=== PATIENT | female | born 1940 | race Caucasian/White ===

== ENCOUNTER → 2017-02-12 | Outpatient (CLI) | payer MEDICARE, OTHER ==
[~2017-02-12] MED LIST: DIPHENHYDRAMINE HCL 25 MG CAPSULE ONE
--- NOTE | 2017-02-12 16:31 | RADIOLOGY REPORT (SQ) ---
EXAM DESCRIPTION: MRI HEAD COMBO COMPLETED DATE/TIME: 02/12/2017 4:09 pm REASON FOR STUDY: SENSORINEURAL HEARING LOSS, UNILATERAL, RIGHT EAR WITH UNRESTRICTED HEARING H90.41 SNSRNRL HEAR LOSS, UNI, RIGHT EAR, W UNRESTR HEAR CNT COMPARISON: None. TECHNIQUE: Multiplanar imaging includes noncontrasted T1, T2, FLAIR, diffusion with ADC map and post gadolinium contrast T1 sequences. Images stored on PACS. Thin section axial T2 images, thin section axial pre and postcontrast T1 weighted images, postcontras t coronal T1 weighted images through the internal auditory canals and inner ear structures. CONTRAST TYPE AND DOSE: 15 mL Multihance. About 15 minutes after injection, the patient developed right preseptal orbital soft tissue swelling with puffiness of her right upper and lower eyelids. This resolved with 50 mg of p.o. Benadryl RENAL FUNCTION: GFR > 60. LIMITATIONS: None. FINDINGS: ANATOMY: No developmental anomalies. Normal vascular flow voids. Pituitary fossa normal. CSF SPACES: Normal in size and contour. No hemorrhage. CEREBRUM: Sulci and gyri normal in size and contour. Moderate spotty chronic small vessel ischemic c hange in the bifrontal and biparietal white matter and mid genet, with small chronic lacunar infarcts in the left thalamus and bilateral basal ganglia. No evidence of hemorrhage, mass, or extraaxial flu id collection. No abnormal enhancement post contrast. No MR evidence of acute infarct. POSTERIOR FOSSA: Moderate chronic pontine small vessel ischemic change. No hemorrhage. No edema, mass es, or mass effect. Internal auditory canals, cerebellopontine angles, mastoids normal. No enhancing lesions. DIFFUSION IMAGING: Negative for acute or subacute infarction. ORBITS: No masses. Globes normal. PARANASAL SINUSES: No fluid levels. Mucosa normal. OTHER: No other significant finding. IMPRESSION: No masses or enhancement along the internal auditory canals or inner ear structures. Moderate small vessel ischemic change, chronic Facial swelling after injection with MultiHance, resolved with 50 mg of p.o. Benadryl. EVIDENCE OF ACUTE STROKE: NO. TECHNICAL DOCUMENTATION: JOB ID: [id number] [employer]- All Rights Reserved
== END ==
LOC: RAD 14:30
PROVIDERS: ATTEND Otolaryngology
DX: H90.41 Sensorineural hearing loss, unilateral, right ear, with unrestricted hearing on the contralateral side (principal)
CPT/HCPCS: 82565; 70553; A9577; A9270

== ENCOUNTER 2017-04-21 10:55 | Day surgery (SDC) | payer MEDICARE, OTHER ==
[~2017-04-21 10:55] MED LIST changes: +BUPIVACAINE HCL 0.75% INJ/PF (7.5 MG/1 ML) 10 ML SDV OD PRN; -DIPHENHYDRAMINE HCL 25 MG CAPSULE ONE; +KETOROLAC TROMETHAMINE 0.45% 4 DROP/0.4 ML DROPERETTE OD PRN; +LIDOCAINE 4% INJ/PF (40 MG/ML) 5 ML AMPUL OD PRN
[2017-04-21] MEDS ORDERED: CHONDR SU A NA/HYALUR INTRAOC KIT (SURGICARE) ONE (11:01)
[2017-04-21] MEDS ORDERED: PHENYLEPHRINE/KETOROLAC 1%-0.3% 4 ML VIAL ONE (11:01)
[2017-04-21] MEDS ORDERED: LIDOCAINE 4% INJ/PF (40 MG/ML) 5 ML AMPUL ONE (11:13)
[2017-04-21] MEDS ORDERED: BUPIVACAINE HCL 0.75% INJ/PF (7.5 MG/1 ML) 10 ML SDV ONE (11:13)
[2017-04-21] MEDS: TROPICAMIDE 1% OPH SOLN 3 ML OD PRN ×3 (11:30→11:50)
[2017-04-21] MEDS: BESIFLOXACIN HCL 0.6% OPH SUSP 5 ML BOTTLE OD PRN ×4 (11:30→12:38)
[2017-04-21] MEDS: CYCLOPENTOLATE 0.2%/PHENYLEPHRINE 1% OPH SOLN 2 ML OD PRN ×3 (11:30→11:50)
[2017-04-21] MEDS: TETRACAINE HCL 0.5% OPH SOLN 0.6 ML DROPERETTE OD PRN ×2 (11:31→11:50)
[2017-04-21] MEDS ORDERED: MIDAZOLAM 2 MG/2 ML INJ ONE ×2 (11:40)
--- NOTE | 2017-04-21 18:23 | DISCHARGE SUMMARY E ---
Discharge Summary NAME: IVIS CAVANAUGH : 1940 AGE: 77Y ADMITTED: 04/21/2017 DISCHARGED: 04/21/2017 HOSPITAL COURSE: The patient is a 77-year-old lady who underwent uneventful cataract extraction with torque intraocular lens implant right eye on 04/21/2017. She will be discharged to home. She is instructed to resume preoperative medications, take Tylenol as needed for discomfort, to keep her eye shielded, to use Besivance, Durezol, and Ilevro at 3:00 p.m. and 8:00 p.m., to follow up in my office in 1 day. DICTATING PHYSICIAN: STEVEN GONZALES M.D. [id number] PHY#: [id number] ID: [id number] JOB#: [id number] ACCT: [id number] cc:STEVEN GONZALES M.D. >
--- NOTE | 2017-04-21 18:23 | [facility] OPERATIVE REPORT E ---
[facility] Operative Report NAME: IVIS CAVANAUGH AGE: 77Y DATE OF SURGERY: 04/21/2017 ROOM: PREOPERATIVE DIAGNOSIS: Cataract, right eye. POSTOPERATIVE DIAGNOSIS: Cataract, right eye. OPERATION: Phacoemulsification with toric intraocular lens implant, right eye. SURGEON: STEVEN GONZALES M.D. ANESTHESIA: Topical with MAC. INDICATIONS FOR SURGERY: Difficulty reading words on TV and driving at night. Best corrected visual acuity 20/70. PROCEDURE: The patient was brought to the Operating Room and placed on the operative table. Following tetracaine drops, topical anesthesia was administered. This consisted of instrument wipe pledgets soaked in a solution of 4% Xylocaine mixed with 0.75% Marcaine in a 1:2 ratio. A 2 x 1 cm pledget was placed in the superior fornix. A 1 x 1 cm pledget was placed in the inferior fornix. The eye was patched shut for 5 minutes. The patch was removed. The eye was sterilely prepped and draped in the usual manner. Lid speculum was placed in the eye. The pledgets were removed. 4-0 black silk sutures were placed around the superior and the inferior rectus muscles to be used as traction. A conjunctival peritomy was made at the 10 o'clock position. Hemostasis was obtained with bipolar cautery. A posterior limbal groove was created using a crescent knife and dissected anteriorly towards the cornea. A sharp point blade was used to create a paracentesis site at the 2 o'clock position. A 2.4 mm keratome was used to enter the anterior chamber through the groove. Viscoelastic was injected into the anterior chamber. An anterior capsulotomy was performed using Utrata forceps in a capsulorrhexis fashion. Hydrodissection and hydrodelineation were performed. Phacoemulsification was performed in eogffq-ven-agfgbuf technique. A total of 41 seconds phaco time was used. Following this, the I/A unit was used to remove residual cortex. Viscoelastic was injected into the capsular bag. Intraocular lens model [id number], 24.0 diopters, serial number [id number] was placed in the capsular bag. The I/A unit was used to remove residual viscoelastic. The wound was seen to be watertight under high and low pressure, and no sutures were placed. The intraocular lens was well centered. The pressure was adjusted in the eye to normal pressure. The 4-0 black silk sutures and lid speculum were removed. The eye was shielded after Besivance drops were placed. The patient tolerated the procedure well and was sent to the Recovery Room in good condition. ADDENDUM: Prior to surgery, the patient was placed in a seated position, and the 0, 180, and 270 degree axis of the eye was marked using a marking level. Prior to placing the lens implant, the 170-degree axis was marked on the eye. The lens was centered at this position. DICTATING PHYSICIAN: STEVEN GONZALES M.D. DICTATING PHYSICIAN: STEVEN GONZALES M.D. [id number] PHY#: [id number] ID: [id number] JOB#: [id number] ACCT: [id number] cc:STEVEN GONZALES M.D. > MTDD
== END 2017-04-21 11:19 | disposition home or self-care (01) ==
LOC: SC 10:55
PROVIDERS: ATTEND Ophthalmology
PROC: 08RJ3JZ Replacement of Right Lens with Synthetic Substitute, Percutaneous Approach (ICD-10-PCS; principal; 2017-04-21 12:30)
DX: H25.811 Combined forms of age-related cataract, right eye (principal); H35.3122 Nonexudative age-related macular degeneration, left eye, intermediate dry stage; H35.3212 Exudative age-related macular degeneration, right eye, with inactive choroidal neovascularization; H35.372 Puckering of macula, left eye; H04.123 Dry eye syndrome of bilateral lacrimal glands; H40.013 Open angle with borderline findings, low risk, bilateral; I10 Essential (primary) hypertension; J44.9 Chronic obstructive pulmonary disease, unspecified; E05.90 Thyrotoxicosis, unspecified without thyrotoxic crisis or storm; Z87.891 Personal history of nicotine dependence; Z88.0 Allergy status to penicillin; Z79.899 Other long term (current) drug therapy
CPT/HCPCS: 66984; V2787; J2250; J3490 ×3; A9270; C9447; 142

== ENCOUNTER 2017-05-12 09:35 | Day surgery (SDC) | payer MEDICARE, OTHER ==
[~2017-05-12 09:35] MED LIST changes: -BUPIVACAINE HCL 0.75% INJ/PF (7.5 MG/1 ML) 10 ML SDV OD PRN; -KETOROLAC TROMETHAMINE 0.45% 4 DROP/0.4 ML DROPERETTE OD PRN; +KETOROLAC TROMETHAMINE 0.45% 4 DROP/0.4 ML DROPERETTE OS PRN; -LIDOCAINE 4% INJ/PF (40 MG/ML) 5 ML AMPUL OD PRN
[2017-05-12] MEDS: TETRACAINE HCL 0.5% OPH SOLN 0.6 ML DROPERETTE OS PRN ×2 (10:10→10:38)
[2017-05-12] MEDS: CYCLOPENTOLATE 0.2%/PHENYLEPHRINE 1% OPH SOLN 2 ML OS PRN ×3 (10:11→10:36)
[2017-05-12] MEDS: TROPICAMIDE 1% OPH SOLN 3 ML OS PRN ×3 (10:11→10:36)
[2017-05-12] MEDS: BESIFLOXACIN HCL 0.6% OPH SUSP 5 ML BOTTLE OS PRN ×4 (10:12→11:22)
[2017-05-12] MEDS ORDERED: MIDAZOLAM 2 MG/2 ML INJ ONE (10:18)
[2017-05-12] MEDS ORDERED: ONDANSETRON HCL INJ/PF 4 MG/2 ML SDV ONE (10:19)
[2017-05-12] MEDS ORDERED: FENTANYL CITRATE INJ/PF 100 MCG/2 ML AMPUL ONE (10:19)
[2017-05-12] MEDS: LIDOCAINE 4% INJ/PF (40 MG/ML) 5 ML AMPUL OS PRN ×2 (11:00)
[2017-05-12] MEDS: BUPIVACAINE HCL 0.75% INJ/PF (7.5 MG/1 ML) 10 ML SDV OS PRN ×2 (11:00)
[2017-05-12] MEDS: CHONDR SU A NA/HYALUR INTRAOC KIT (SURGICARE) ONE ×2 (11:08)
[2017-05-12] MEDS: PHENYLEPHRINE/KETOROLAC 1%-0.3% 4 ML VIAL ONE ×2 (11:08)
--- NOTE | 2017-05-12 11:37 | [facility] DISCHARGE SUMMARY E ---
[facility] Discharge Summary NAME: IVIS CAVANAUGH AGE: 77Y ADMITTED: 05/12/2017 DISCHARGED: 05/12/2017 HOSPITAL COURSE: The patient is a 77-year-old lady who underwent uneventful cataract extraction with toric intraocular lens implant left eye on 05/12/2017. She will be discharged to home. She is instructed to resume preoperative medications, take Tylenol as needed for discomfort, to keep her eye shielded, to use Besivance, Durezol, and Ilevro at 3 p.m. and 8 p.m., and to follow up in my office in 1 day. DICTATING PHYSICIAN: STEVEN GONZALES M.D. [id number] PHY#: [id number] ID: [id number] JOB#: [id number] ACCT: [id number] cc:STEVEN GONZALES M.D. > MTDD
--- NOTE | 2017-05-12 11:37 | [facility] OPERATIVE REPORT E ---
[facility] Operative Report NAME: IVIS CAVANAUGH AGE: 77Y DATE OF SURGERY: 05/12/2017 ROOM: PREOPERATIVE DIAGNOSES: 1. Cataract, left eye. 2. astigmatism, left eye. POSTOPERATIVE DIAGNOSES: 1. Cataract, left eye. 2. astigmatism, left eye. PROCEDURE PERFORMED: Phacoemulsification with Toric intraocular lens implant, left eye. SURGEON: STEVEN GONZALES M.D. ANESTHESIA: Topical with MAC. INDICATIONS FOR SURGERY: Difficulty with glare and reading captions on TV. Best corrected visual acuity 20/50. PROCEDURE: The patient was brought to the Operating Room and placed on the operative table.Prior to the surgery, the patient was placed in the seated position and the 0, 270, and 180 degree axis was marked on the eye using a marking level. Following tetracaine drops, topical anesthesia was administered. This consisted of instrument wipe pledgets soaked in a solution of 4% Xylocaine mixed with 0.75% Marcaine in a 1:2 ratio. A 2 x 1 cm pledget was placed in the superior fornix. A 1 x 1 cm pledget was placed in the inferior fornix. The eye was patched shut for 5 minutes. The patch was removed. The eye was sterilely prepped and draped in the usual manner. Lid speculum was placed in the eye. The pledgets were removed. 4-0 black silk sutures were placed around the superior and the inferior rectus muscles to be used as traction. A conjunctival peritomy was made at the 10 o'clock position. Hemostasis was obtained with bipolar cautery. A posterior limbal groove was created using a crescent knife and dissected anteriorly towards the cornea. A sharp point blade was used to create a paracentesis site at the 2 o'clock position. A 2.4 mm keratome was used to enter the anterior chamber through the groove. Viscoelastic was injected into the anterior chamber. An anterior capsulotomy was performed using Utrata forceps in a capsulorrhexis fashion. Hydrodissection and hydrodelineation were performed. Phacoemulsification was performed in rpcuee-xpi-yhyxvle technique. A total of 5.51 CDE phaco time was used. Following this, the I/A unit was used to remove residual cortex. Viscoelastic was injected into the capsular bag. the 5 degree axis was marked on the eye using the previously marked sites as reference.Intraocular lens model SN6AT4, 24.0 diopters, serial number [id number] was placed in the capsular bag. The lens was centered at the 5 degree axis The I/A unit was used to remove residual viscoelastic. The wound was seen to be watertight under high and low pressure, and no sutures were placed. The intraocular lens was well centered. The pressure was adjusted in the eye to normal pressure. The 4-0 black silk sutures and lid speculum were removed. The eye was shielded after Besivance drops were placed. The patient tolerated the procedure well and was sent to the Recovery Room in good condition. DICTATING PHYSICIAN: STEVEN GONZALES M.D. [id number] PHY#: [id number] ID: [id number] JOB#: [id number] ACCT: [id number] cc:STEVEN GONZALES M.D. > MTDD
== END 2017-05-12 12:04 | disposition home or self-care (01) ==
LOC: SC 09:35
PROVIDERS: ATTEND Ophthalmology
PROC: 08RK3JZ Replacement of Left Lens with Synthetic Substitute, Percutaneous Approach (ICD-10-PCS; principal; 2017-05-12 11:00)
DX: H25.812 Combined forms of age-related cataract, left eye (principal); H52.202 Unspecified astigmatism, left eye; Z96.1 Presence of intraocular lens; J44.9 Chronic obstructive pulmonary disease, unspecified; I10 Essential (primary) hypertension; E07.9 Disorder of thyroid, unspecified; Z79.899 Other long term (current) drug therapy; Z88.0 Allergy status to penicillin
CPT/HCPCS: 66984; V2787; J2250; J3490 ×3; A9270; J3010; J2405; C9447; 142

== ENCOUNTER 2018-07-03 11:15 | Emergency (ER) | payer MEDICARE, OTHER ==
[2018-07-03 11:25] VITALS: BP 168/79
--- NOTE | 2018-07-03 11:49 | ER Document Report ---
ED General - General Chief Complaint: Cold Symptoms Stated Complaint: COUGH Time Seen by Provider: 07/03/18 11:26 Notes: Patient is a 1-year-old female with history of COPD, not on oxygen that presents to the emergency department for chief complaint of runny nose, cough and sneezing. The patient states that both her and her have had similar symptoms over the past 3 days, has had decreased appetite as a result, and postnasal drip. She is on Spiriva for her COPD, she states that she does not think it helps. She has not noticed any significant wheezing. She denies any fevers, chills, night sweats, difficulty breathing or shortness of breath associated or any chest pain. She states they have done construction on their house recently, there is a lot of dust, and thinks that that may have triggered her symptoms. Past Medical History: COPD, hypothyroidism Past Surgical History: Hysterectomy Social History: Former smoker, quit many years ago, denies alcohol or drug use. Family History: Reviewed and noncontributory for presenting illness Allergies: Reviewed, see documented allergy list. REVIEW OF SYSTEMS: Other than noted above, the 12 point review of systems was reviewed with the patient and were negative, all pertinent findings are included in the HPI. PHYSICAL EXAMINATION: Vital signs reviewed, nursing noted reviewed. GENERAL: Elderly female, well-appearing, well-nourished and in no acute distress. HEAD: Atraumatic, normocephalic. EYES: Eyes appear normal, extraocular movements intact, sclera anicteric, conjunctiva are normal. ENT: Mild bilateral nasal turbinate injection, nares patent, oropharynx clear without exudates. Moist mucous membranes. NECK: Normal range of motion, supple without lymphadenopathy LUNGS: Breath sounds clear to auscultation bilaterally and equal. No wheezes rales or rhonchi. HEART: Regular rate and rhythm without murmurs ABDOMEN: Soft, nontender, normoactive bowel sounds. No rebound, guarding, or rigidity. No masses appreciated. EXTREMITIES: Nontender, good range of motion, no pitting or edema. NEUROLOGICAL: No focal neurological deficits. Moves all extremities spontaneously Motor and sensory grossly intact on exam. PSYCH: Normal mood, normal affect. SKIN: Warm, Dry, normal turgor, no rashes or lesions noted on exposed skin TRAVEL OUTSIDE OF THE [place] IN LAST 30 DAYS: No - Related Data Allergies/Adverse Reactions: lidocaine Allergy (Intermediate, Verified 04/21/17 11:29) ELEVATED BP Penicillins Allergy (Intermediate, Verified 04/21/17 11:29) RASH Past Medical History - Social History Smoking Status: Former Smoker Family History: Reviewed & Not Pertinent Patient has suicidal ideation: No Patient has homicidal ideation: No - Past Medical History Cardiac Medical History: Reports: Hx Hypercholesterolemia, Hx Hypertension - on meds Denies: Hx Coronary Artery Disease, Hx Heart Attack Pulmonary Medical History: Reports: Hx COPD Denies: Hx Asthma, Hx Bronchitis, Hx Pneumonia Neurological Medical History: Denies: Hx Cerebrovascular Accident, Hx Seizures Endocrine Medical History: Reports: Hx Hypothyroidism Renal/ Medical History: Denies: Hx Peritoneal Dialysis GI Medical History: Reports: Hx Ulcer - 30 YRS AGO . Denies: Hx Hepatitis, Hx Hiatal Hernia Musculoskeletal Medical History: Reports Hx Arthritis - generalized Psychiatric Medical History: Reports: Hx Depression Infectious Medical History: Denies: Hx Hepatitis Past Surgical History: Reports: Hx Abdominal Surgery - hernias, Hx Cholecystectomy, Hx Hysterectomy. Denies: Hx Mastectomy, Hx Open Heart Surgery, Hx Pacemaker - Immunizations Hx Diphtheria, Pertussis, Tetanus Vaccination: Yes Physical Exam - Vital signs Vitals: Temp Pulse Resp BP Pulse Ox 97.6 F 63 22 H 168/79 H 96 07/03/18 11:24 07/03/18 11:24 07/03/18 11:24 07/03/18 11:24 07/03/18 11:24 Course - Re-evaluation Re-evalutation: Patient seen and examined vital signs reviewed. Patient was evaluated and treated as appropriate for the patient's presenting symptoms and complaint, with consideration of any critical or life threatening conditions that may be associated with their obtained history and exam as noted above. The patient was re-evaluated and was stable, no increased work of breathing, chest x-ray reviewed and negative Evaluation was most consistent with URI, will discharge home with a prescription for Flonase and follow-up with PCP, patient was agreeable Plan of care was discussed with the patient at this point, after careful consideration I feel that that patient can be discharged from the emergency department, the patient was educated treatments and reasons to return to the emergency department based on their presumed diagnosis as noted above, they were advised to followup with a primary care physician in 2-3 days. Patient was agreeable to plan of care. *Note is created using voice recognition software and may contain spelling, syntax or grammatical errors. Chest X-Ray 07/03/18 11:49 IMPRESSION: COPD. NO ACUTE RADIOGRAPHIC FINDING IN THE CHEST. - Vital Signs Vital signs: Temp Pulse Resp BP Pulse Ox 97.6 F 63 22 H 168/79 H 96 07/03/18 11:24 07/03/18 11:24 07/03/18 11:24 07/03/18 11:24 07/03/18 11:24 Discharge - Discharge Clinical Impression: URI (upper respiratory infection) Qualifiers: URI type: unspecified URI Qualified Code(s): J06.9 - Acute upper respiratory infection, unspecified Condition: Stable Disposition: HOME, SELF-CARE Instructions: Upper Respiratory Illness ([facility]) Additional Instructions: Please use the Flonase as directed, at this time I do not think you need any antibiotics, your chest x-ray is negative for any sign of pneumonia, continue your Spiriva as directed, and please follow-up with your primary care physician. Prescriptions: Fluticasone Propionate [Flonase Nasal [place] 50 Mcg/[place] 16 gm] 1 spray NASL Q12 #1 inhaler Referrals: MARY KAY CORONA MD [Primary Care Provider] - Follow up as needed
--- NOTE | 2018-07-03 12:41 | RADIOLOGY REPORT (SQ) ---
EXAM DESCRIPTION: CHEST 2 VIEWS COMPLETED DATE/TIME: 07/03/2018 12:23 pm REASON FOR STUDY: cough COMPARISON: None. NUMBER OF VIEWS: Two view. TECHNIQUE: Frontal and lateral radiographic views of the chest acquired. LIMITATIONS: None. FINDINGS: LUNGS AND PLEURA: No opacities, masses or pneumothorax. No pleural effusion. Attenuated bl ood vessels and flattened roderick-diaphragms. MEDIASTINUM AND HILAR STRUCTURES: No masses. No contour abnormalities. HEART AND VASCULAR STRUCTURES: Heart normal in size and contour. No evidence for failure. BONES: No acute findings. HARDWARE: None in the chest. OTHER: No other significant finding. IMPRESSION: COPD. NO ACUTE RADIOGRAPHIC FINDING IN THE CHEST. TECHNICAL DOCUMENTATION: JOB ID: [id number] [employer]- All Rights Reserved Reading location - IP/workstation name: [email or web address]
== END 2018-07-03 13:43 | disposition home or self-care (01) ==
LOC: ER 11:15
DX: J06.9 Acute upper respiratory infection, unspecified (principal); R05 Cough; R06.7 Sneezing; R09.89 Other specified symptoms and signs involving the circulatory and respiratory systems; J44.9 Chronic obstructive pulmonary disease, unspecified; Z87.891 Personal history of nicotine dependence; Z79.899 Other long term (current) drug therapy
CPT/HCPCS: 71046; 99283

== ENCOUNTER 2018-08-17 10:27 | Emergency (ER) | payer MEDICARE, OTHER ==
--- NOTE | 2018-08-17 10:43 | ER Document Report ---
ED Medical Screen (RME) - General Chief Complaint: Flank Pain Stated Complaint: UTI SYMPTOMS Time Seen by Provider: 08/17/18 10:34 Primary Care Provider: MARY KAY CORONA MD [Primary Care Provider] - Follow up as needed Notes: 78 years old female presents today with right flank pain for the last 2 days. After being completed Macrobid for 8 days for UTI. Pain is sharp moderate to severe in intensity. No fever chills or other constitutional symptoms. No hematuria dysuria frequency urgency. Right flank tenderness noted TRAVEL OUTSIDE OF THE [place] IN LAST 30 DAYS: No - Related Data Allergies/Adverse Reactions: lidocaine Allergy (Intermediate, Verified 08/17/18 10:28) ELEVATED BP Penicillins Allergy (Intermediate, Verified 08/17/18 10:28) RASH Past Medical History - Social History Chew tobacco use (# tins/day): No Drug Abuse: None - Past Medical History Cardiac Medical History: Reports: Hx Hypercholesterolemia, Hx Hypertension - on meds Denies: Hx Coronary Artery Disease, Hx Heart Attack Pulmonary Medical History: Reports: Hx COPD Denies: Hx Asthma, Hx Bronchitis, Hx Pneumonia Neurological Medical History: Denies: Hx Cerebrovascular Accident, Hx Seizures Endocrine Medical History: Reports: Hx Hypothyroidism Renal/ Medical History: Denies: Hx Peritoneal Dialysis GI Medical History: Reports: Hx Ulcer - 30 YRS AGO . Denies: Hx Hepatitis, Hx Hiatal Hernia Musculoskeltal Medical History: Reports Hx Arthritis - generalized Psychiatric Medical History: Reports: Hx Depression Infectious Medical History: Denies: Hx Hepatitis Past Surgical History: Reports: Hx Abdominal Surgery - hernias, Hx Cholecystectomy, Hx Hysterectomy. Denies: Hx Mastectomy, Hx Open Heart Surgery, Hx Pacemaker - Immunizations Hx Diphtheria, Pertussis, Tetanus Vaccination: Yes Physical Exam - Vital signs Vitals: Temp Pulse Resp BP Pulse Ox 97.7 F 68 16 155/62 H 93 08/17/18 10:32 08/17/18 10:32 08/17/18 10:32 08/17/18 10:32 08/17/18 10:32 Course - Vital Signs Vital signs: Temp Pulse Resp BP Pulse Ox 97.7 F 68 16 155/62 H 93 08/17/18 10:32 08/17/18 10:32 08/17/18 10:32 08/17/18 10:32 08/17/18 10:32 Doctor's Discharge - Discharge Referrals: MARY KAY CORONA MD [Primary Care Provider] - Follow up as needed
--- NOTE | 2018-08-17 11:28 | RADIOLOGY REPORT (SQ) ---
EXAM DESCRIPTION: CT LTD RENAL STONE PROTOCOL ON COMPLETED DATE/TIME: 08/17/2018 11:15 am REASON FOR STUDY: flank pain COMPARISON: CT abdomen pelvis 08/08/2013 TECHNIQUE: CT scan of the abdomen and pelvis performed without intravenous or oral contrast. Images reviewed with lung, soft tissue, and bone windows. Reconstructed coronal and sagittal MPR images revi ewed. All images stored on PACS. All CT scanners at this facility use dose modulation, iterative reconstruction, and/or weight based d osing when appropriate to reduce radiation dose to as low as reasonably achievable (ALARA). [facility]: Dose Right [facility]: CareDose [facility]: Dose Right [facility]: Teradose 4D [facility]: Smart Travel [employer] RADIATION DOSE: CT Rad equipment meets quality standard of care and radiation dose reduction techniq ues were employed. CTDIvol: 14.7 mGy. DLP: 747 mGy-cm.mGy. LIMITATIONS: None. FINDINGS: LOWER CHEST: Increased interstitial markings in the periphery of both lung. Small hiatal hernia. NON-CONTRASTED LIVER, SPLEEN, ADRENALS: Evaluation limited by lack of IV contrast. No identified sign ificant masses. Multiple benign hepatic cysts, the largest is 2 cm in the left lobe liver. PANCREAS: No masses. No peripancreatic inflammatory changes. GALLBLADDER: Surgically absent RIGHT KIDNEY AND URETER: No suspicious masses. Assessment limited by lack of IV contrast. Subcentime ter right upper and right lower pole renal cortical cyst. Tiny less than 2 mm calcifications right m id and lower pole kidney, intrarenal nonobstructive stones. No right ureteral calculi. No hydronep hrosis or hydroureter. LEFT KIDNEY AND URETER: No suspicious masses. Assessment limited by lack of IV contrast. No signifi cant calcifications. No hydronephrosis or hydroureter. AORTA AND RETROPERITONEUM: No aneurysm. No retroperitoneal masses or adenopathy. BOWEL AND PERITONEAL CAVITY: No obvious masses or inflammatory changes. No free fluid. APPENDIX: Normal. 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 This is adjacent to the right ureteral orifice into the bladder on axial image 73, and coronal image 48. Post hysterectomy. No pelvic adenopathy or masses. Intact ventral herni a repair BONES: No significant findings. OTHER: No other significant finding. 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 Post cholecystectomy, hysterectomy, and ventral hernia repair, intact. COMMENT: Quality ID # [id number]: Final reports with documentation of one or more dose reduction techniques (e.g., Automated exposure control, adjustment of the mA and/or kV according to patient size, use of iterative reconstruction technique) TECHNICAL DOCUMENTATION: JOB ID: [id number] [employer]- All Rights Reserved Reading location - IP/workstation name: [email or web address]
[2018-08-17 11:36] LABS: ABSOLUTE EOSINOPHILS # (AUTO) 0.2 10^3/uL (0.0-0.6); ABSOLUTE LYMPHOCYTES (AUTO) 1.3 10^3/uL (0.5-4.7); ABSOLUTE MONOCYTES (AUTO) 0.6 10^3/uL (0.1-1.4); ABSOLUTE NEUT (AUTO) 4.3 10^3/uL (1.7-8.2); BASOPHILS % (AUTO) 0.7 % (0-2); EOSINOPHILS % (AUTO) 2.8 % (0-6); HEMATOCRIT 43.4 % (36.0-47.0); HEMOGLOBIN 14.8 g/dL (12.0-15.5); MEAN CORPUSCULAR HEMOGLOBIN 29.9 pg (27.0-33.4); MEAN CORPUSCULAR HGB CONC 34.1 g/dL (32.0-36.0); MEAN CORPUSCULAR VOLUME 88 fl (80-97); MONOCYTES % (AUTO) 9.3 % (3-13); PLATELET COUNT 304 10^3/uL (150-450); RED BLOOD COUNT 4.95 10^6/uL (3.72-5.28); RED CELL DISTRIBUTION WIDTH 12.7 % (11.5-14.0); SEGMENTED NEUTROPHILS % (AUTO) 67.2 % (42-78); TOTAL CELLS COUNTED % (AUTO) 100 %; WHITE BLOOD COUNT 6.4 10^3/uL (4.0-10.5)
[2018-08-17 11:45] LABS: APPEARANCE,URINE SLIGHTLY-CLOUDY; BILIRUBIN,URINE NEGATIVE (NEGATIVE); COLOR,URINE YELLOW; GLUCOSE, URINE NEGATIVE (NEGATIVE); KETONES,URINE NEGATIVE (NEGATIVE); LEUKOCYTE ESTERASE,URINE LARGE (NEGATIVE); NITRITE,URINE NEGATIVE (NEGATIVE); PROTEIN,URINE NEGATIVE (NEGATIVE); UROBILINOGEN,URINE NEGATIVE mg/dL (<2.0)
[2018-08-17 11:58] LABS: ALANINE AMINOTRANSFERASE 19 U/L (9-52); ALKALINE PHOSPHATASE 95 U/L (38-126); ANION GAP 12 (5-19); ASPARTATE AMINO TRANSFERASE 17 U/L (14-36); BILIRUBIN,DIRECT 0.2 mg/dL (0.0-0.4); BILIRUBIN,TOTAL 0.7 mg/dL (0.2-1.3); BLOOD UREA NITROGEN 13 mg/dL (7-20); CALCIUM 8.9 mg/dL (8.4-10.2); CARBON DIOXIDE 25 mmol/L (22-30); CHLORIDE 103 mmol/L (98-107); GLUCOSE 107 mg/dL (75-110); LIPASE 95.7 U/L (23-300); POTASSIUM 3.8 mmol/L (3.6-5.0); TOTAL PROTEIN 6.4 g/dL (6.3-8.2)
--- NOTE | 2018-08-17 12:06 | ER Document Report ---
ED General - General Chief Complaint: Flank Pain Stated Complaint: UTI SYMPTOMS Time Seen by Provider: 08/17/18 10:34 Primary Care Provider: MARY KAY ALLEN MD [Primary Care Provider] - 08/17/18 Mode of Arrival: Ambulatory Information source: Patient Notes: This is an 78-year-old female with a history of COPD that presents to the emergency room with a one-week history of right CVA tenderness and difficulty urinating. Patient states she was seen at a clinic 1 week ago and was treated with an antibiotic for a UTI. She denies fever, chills, nausea or vomiting. Patient presents with pain to the right back. TRAVEL OUTSIDE OF THE [place] IN LAST 30 DAYS: No - HPI Onset: Last week Onset/Duration: Gradual Quality of pain: Dull Severity: Moderate Pain Level: 2 Associated symptoms: denies: Chest pain, Fever, Nausea, Vomiting, Shortness of breath Exacerbated by: Denies Relieved by: Denies Similar symptoms previously: Yes Recently seen / treated by doctor: Yes - Related Data Allergies/Adverse Reactions: lidocaine Allergy (Intermediate, Verified 08/17/18 10:28) ELEVATED BP Penicillins Allergy (Intermediate, Verified 08/17/18 10:28) RASH Past Medical History - General Information source: Patient - Social History Smoking Status: Never Smoker Cigarette use (# per day): No Chew tobacco use (# tins/day): No Frequency of alcohol use: None Drug Abuse: None Lives with: Family Family History: Reviewed & Not Pertinent Patient has suicidal ideation: No Patient has homicidal ideation: No - Past Medical History Cardiac Medical History: Reports: Hx Hypercholesterolemia, Hx Hypertension - on meds Denies: Hx Coronary Artery Disease, Hx Heart Attack Pulmonary Medical History: Reports: Hx COPD Denies: Hx Asthma, Hx Bronchitis, Hx Pneumonia Neurological Medical History: Denies: Hx Cerebrovascular Accident, Hx Seizures Endocrine Medical History: Reports: Hx Hypothyroidism Renal/ Medical History: Denies: Hx Peritoneal Dialysis GI Medical History: Reports: Hx Ulcer - 30 YRS AGO . Denies: Hx Hepatitis, Hx Hiatal Hernia Musculoskeletal Medical History: Reports Hx Arthritis - generalized Psychiatric Medical History: Reports: Hx Depression Infectious Medical History: Denies: Hx Hepatitis Past Surgical History: Reports: Hx Abdominal Surgery - hernias, Hx Ch olecystectomy, Hx Hysterectomy. Denies: Hx Mastectomy, Hx Open Heart Surgery, Hx Pacemaker - Immunizations Hx Diphtheria, Pertussis, Tetanus Vaccination: Yes Review of Systems - Review of Systems Constitutional: denies: Chills, Fever EENT: No symptoms reported Cardiovascular: denies: Chest pain, Palpitations, Heart racing Respiratory: denies: Cough, Short of breath, Wheezing Gastrointestinal: denies: Abdominal pain, Nausea, Vomiting Genitourinary: Burning, Dysuria - Patient symptoms of UTI have actually improved Female Genitourinary: No symptoms reported Musculoskeletal: Back pain Skin: No symptoms reported Hematologic/Lymphatic: No symptoms reported Neurological/Psychological: No symptoms reported Physical Exam - Vital signs Vitals: Temp Pulse Resp BP Pulse Ox 97.7 F 68 16 155/62 H 93 08/17/18 10:32 08/17/18 10:32 08/17/18 10:32 08/17/18 10:32 08/17/18 10:32 Notes: Physical exam: GENERAL: Patient is alert and oriented x3, complaining of some right CVA tenderness. HEAD: Atraumatic, normocephalic. EYES: Pupils equal round and reactive to light, extraocular movements intact, sclera anicteric, conjunctiva are normal. ENT: TMs normal, nares patent, oropharynx clear without exudates. Moist mucous membranes. NECK: Normal range of motion, supple without obvious mass or JVD. LUNGS: Breath sounds clear to auscultation bilaterally and equal. No wheezes rales or rhonchi. HEART: Regular rate and rhythm without murmurs, rubs or gallops. ABDOMEN: Soft, normoactive bowel sounds. Lower suprapubic surgical site clear. No tenderness to palpation. No guarding, no rebound. No masses appreciated. Back: Right CVA tenderness. No skin changes. EXTREMITIES: Normal range of motion, no pitting or edema. No clubbing or cyanosis. NEUROLOGICAL: Cranial nerves II through XII grossly intact. Normal speech, moving all extremities. PSYCH: Normal mood, normal affect. SKIN: Warm, Dry, normal turgor, no rashes or lesions noted. Course - Re-evaluation Re-evalutation: 08/17/18 12:36 Patient has had Keflex in the past without difficulty. Dr. Mary Kay Allen was contacted regarding results of the labs and CT scan (specifically that patient has been found with a new bladder mass and needs urgent urologic follow-up to workup this mass) and he stated that he will have patient follow-up with a urologist in for the patient to call his office. I did discuss this with the patient as well as her that the CT scan showed a bladder mass and that this could potentially be cancer. I let them know that I was able to get a hold of Dr. Allen and let him know what was found on CT so he could facilitate the workup in the outpatient setting. They did ask me whether they could travel (they had plans to leave Thursday) and I recommended that he not travel at this time until follow-up could be obtained. The patient and appear to understand all points of the conversation. I gave them a copy of the labs, CT report as well as the CT scan on disc so that she can bring them to the urologist (and Dr. Allen) when she has follow-up. 08/17/18 18:50 - Vital Signs Vital signs: Temp Pulse Resp BP Pulse Ox 98.8 F 61 18 171/73 H 96 08/17/18 12:46 08/17/18 12:46 08/17/18 12:46 08/17/18 12:46 08/17/18 12:46 - Laboratory Result Diagrams: 08/17/18 11:20 08/17/18 11:20 Laboratory results interpreted by me: 08/17/18 10:20 Urine Blood MODERATE H Ur Leukocyte Esterase LARGE H - Diagnostic Test Radiology reviewed: Image reviewed, Reports reviewed - CT of the abdomen shows a right bladder trigone mass Critical Care Note - Critical Care Note Total time excluding time spent on procedures (mins): 60 Discharge - Discharge Clinical Impression: Bladder mass, UTI Condition: Stable Disposition: HOME, SELF-CARE Additional Instructions: The urine test still showed some white cells and bacteria. We will give you another antibiotic. I did send a urine culture which will take a few days to come back. As we discussed, the CT scan showed a bladder mass. I did speak to Dr. Mary Kay Allen today and I let him know that you were in the emergency room and I gave him the results of the CAT scan. He wants you to call the office so that you could be seen by a urologist within the next week. Ultimately, the urologist may need to do a scope for diagnosis/biopsy, etc. Take oxycodone for pain. If you get nausea: Take the Zofran as needed. Take the antibiotic as prescribed. Return to the emergency room for worsening pain, vomiting, not tolerating fluids or any concerns or getting worse. The pain medicine you're taking prescribed as a narcotic. There are several important things you should know about this medicine: 1. Taking narcotics for too long can lead to physical and mental dependence. Take this medicine only if really needed and in the lowest quantity to achieve pain relief. 2. Do not drink alcohol while on this medicine. Alcohol interacts with narcotics and the combination can be dangerous. 3. Do not drive or operate machinery while on this medicine. 4. Narcotics do cause constipation, so drink plenty of fluids and daily stool softeners. Prescriptions: Oxycodone HCl [Oxy-Ir 5 mg Tablet] 5 mg PO Q6HP PRN #20 tablet PRN Reason: Cephalexin Monohydrate [Keflex 500 mg Capsule] 500 mg PO Q6H 5 Days capsule Ondansetron HCl [Zofran 4 mg Tablet] 1 - 2 tab PO Q4H PRN #10 tablet PRN Reason: Referrals: MARY KAY ALLEN MD [Primary Care Provider] - 08/17/18
[2018-08-17 12:46] VITALS: BP 171/73
== END 2018-08-17 13:09 | disposition home or self-care (01) ==
LOC: ER 10:27
DX: N39.0 Urinary tract infection, site not specified (principal); N32.89 Other specified disorders of bladder; M54.9 Dorsalgia, unspecified; I10 Essential (primary) hypertension; J44.9 Chronic obstructive pulmonary disease, unspecified; Z88.4 Allergy status to anesthetic agent; Z88.0 Allergy status to penicillin
CPT/HCPCS: 36415; 76380; 80053; 81001; 83690; 85025; 87086; 87088; 99285

== ENCOUNTER 2018-10-21 21:36 | Emergency (ER) | payer MEDICARE, OTHER ==
--- NOTE | 2018-10-21 22:40 | ER Document Report ---
ED Medical Screen (RME) - General Chief Complaint: Blood in Catheter Stated Complaint: POSSIBLE BLOOD CLOT Primary Care Provider: MARY KAY CORONA MD [Primary Care Provider] - Follow up as needed TRAVEL OUTSIDE OF THE [place] 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 She was told by urology that if she noticed any blood clotting at all that she needs to come to the emergency department. She is currently on Eliquis for pulmonary embolism that was diagnosed last month. Patient was discharged from the hospital this morning ([facility]). She has no other concerns or complaints. Denies GUTIERREZ, fever, neck pain, URI, CP, SOB, Abd pain, or rash. I have treated and performed a rapid initial assessment of this patient. A comprehensive ED assessment and evaluation of the patient, analysis of test results and completion of medical decision making process will be conducted by additional ED providers. PHYSICAL EXAMINATION: GENERAL: Well-appearing, well-nourished and in no acute distress. A&Ox4. Answers questions appropriately. LUNGS: Breath sounds clear to auscultation bilaterally and equal. No wheezes rales or rhonchi. HEART: Regular rate and rhythm without murmurs, rubs, gallops. : two small blood clots noted, one in the bag and one in the tube. - Related Data Allergies/Adverse Reactions: lidocaine Allergy (Intermediate, Verified 08/17/18 10:28) ELEVATED BP Penicillins Allergy (Intermediate, Verified 08/17/18 10:28) RASH Past Medical History - Social History Frequency of alcohol use: None Drug Abuse: None - Past Medical History Cardiac Medical History: Reports: Hx Hypercholesterolemia, Hx Hypertension - on meds Denies: Hx Coronary Artery Disease, Hx Heart Attack Pulmonary Medical History: Reports: Hx COPD Denies: Hx Asthma, Hx Bronchitis, Hx Pneumonia Neurological Medical History: Denies: Hx Cerebrovascular Accident, Hx Seizures Endocrine Medical History: Reports: Hx Hypothyroidism Renal/ Medical History: Denies: Hx Peritoneal Dialysis GI Medical History: Reports: Hx Ulcer - 30 YRS AGO . Denies: Hx Hepatitis, Hx Hiatal Hernia Musculoskeltal Medical History: Reports Hx Arthritis - generalized Psychiatric Medical History: Reports: Hx Depression Infectious Medical History: Denies: Hx Hepatitis Past Surgical History: Reports: Hx Abdominal Surgery - hernias, Hx Cholecystectomy, Hx Hysterectomy. Denies: Hx Mastectomy, Hx Open Heart Surgery, Hx Pacemaker - Immunizations Hx Diphtheria, Pertussis, Tetanus Vaccination: Yes Doctor's Discharge - Discharge Referrals: MARY KAY CORONA MD [Primary Care Provider] - Follow up as needed
--- NOTE | 2018-10-22 01:37 | ER Document Report ---
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 Canseco. She says she was told that if she saw any blood clots in her catheter that she must return to the ER immediately. Patient says she saw 3 very tiny blood clots in her Gandara bag and therefore she came to the ER. She says she is not passed any further blood clots. The urine has remained a light reddish to yellow color. She is on blood thinners because of a history of PE. She denies any fevers. She denies any pain. She says that her catheter is been draining appropriately. TRAVEL OUTSIDE OF THE [place] IN LAST 30 DAYS: No - Related Data Allergies/Adverse Reactions: lidocaine Allergy (Intermediate, Verified 08/17/18 10:28) ELEVATED BP Penicillins Allergy (Intermediate, Verified 08/17/18 10:28) RASH Past Medical History - Social History Smoking Status: Former Smoker Frequency of alcohol use: None Drug Abuse: None Family History: Reviewed & Not Pertinent Patient has suicidal ideation: No Patient has homicidal ideation: No - Past Medical History Cardiac Medical History: Reports: Hx Hypercholesterolemia, Hx Hypertension - on meds Denies: Hx Coronary Artery Disease, Hx Heart Attack Pulmonary Medical History: Reports: Hx COPD Denies: Hx Asthma, Hx Bronchitis, Hx Pneumonia Neurological Medical History: Denies: Hx Cerebrovascular Accident, Hx Seizures Endocrine Medical History: Reports: Hx Hypothyroidism Renal/ Medical History: Denies: Hx Peritoneal Dialysis GI Medical History: Reports: Hx Ulcer - 30 YRS AGO . Denies: Hx Hepatitis, Hx Hiatal Hernia Musculoskeletal Medical History: Reports Hx Arthritis - generalized Psychiatric Medical History: Reports: Hx Depression Infectious Medical History: Denies: Hx Hepatitis Past Surgical History: Reports: Hx Abdominal Surgery - hernias, Hx Cholecystectomy, Hx Hysterectomy. Denies: Hx Mastectomy, Hx Open Heart Surgery, Hx Pacemaker - Immunizations Hx Diphtheria, Pertussis, Tetanus Vaccination: Yes Review of Systems - Review of Systems Notes: My Normal Review Basic REVIEW OF SYSTEMS: CONSTITUTIONAL : Denies fever, chills, or sweats. Denies recent illness. RESPIRATORY: Denies cough, cold, or chest congestion. Denies shortness of breath, difficulty breathing, or wheezing. GASTROINTESTINAL: Denies abdominal pain. Denies nausea, vomiting, or diarrhea. Denies constipation. Last BM: GENITOURINARY: small blood clots Gandara bag MUSCULOSKELETAL: Denies neck or back pain or joint pain or swelling. SKIN: Denies rash or skin lesions. NEUROLOGICAL: Denies altered mental status or loss of consciousness. ALL OTHER SYSTEMS REVIEWED AND NEGATIVE. Physical Exam - Notes Notes: General Appearance: Well nourished, alert, cooperative, no acute distress, no obvious discomfort. Vitals: reviewed, See vital signs table. Abdomen: Normal BS, soft, No rigidity, No abdominal tenderness, No guarding, no rebound, no abdominal masses, no organomegaly Gandara catheter in place. Bedside ultrasound shows Gandara balloon in appropriate positioning. Bladder is not distended. Extremities: s good pulses in all extremities, no edema. Skin: warm, dry, appropriate color Neuro: speech clear, oriented x 3, normal affect, responds appropriately to questions. Course - Re-evaluation Re-evalutation: 10/22/18 05:56 Patient is well-appearing. Feel patient safe to be discharged home. I encouraged the patient to return to the ER immediately if she has passing of frequent clots, heavy bleeding, or if she feels pain in her bladder region or feels as if her bladder is not draining appropriately. Being that the patient was told to come immediately to the ER if she had any bleeding I did call and speak with Dr. Cook who is covering for Dr. Canseco. He said that it is safe for the patient to go home. Patient agrees with plan and will be discharged home. Patient's vital signs are stable. She is very comfortable appearing. He has no signs on exam that would cause me to be concerned that she is significantly anemic. Skin color is normal. Respiratory rate is normal. Blood pressure and heart rate are normal. Dictation of this chart was performed using voice recognition software; therefore, there may be some unintended grammatical errors. Discharge - Discharge Clinical Impression: Post-op bleeding Qualifiers: Surgical complication system/body Area: genitourinary Procedure type: genitourinary Qualified Code(s): N99.820 - Postprocedural hemorrhage of a genitourinary system organ or structure following a genitourinary system procedure Condition: Good Disposition: HOME, SELF-CARE Additional Instructions: I spoke with Dr. Pb Cook, urologist covering for Dr. Canseco. It is safe for you to go home. It is expected to heavy cisco.m blood tinged urine and an occasional small clot in the gandara bag. It will be concerning if you have heavy bleeding. Pain in the abdomen, fevers, or feel that your catheter is clogged because of clots.
== END 2018-10-22 01:57 | disposition home or self-care (01) ==
LOC: ER 21:36
DX: N99.820 Postprocedural hemorrhage of a genitourinary system organ or structure following a genitourinary system procedure (principal); Z98.890 Other specified postprocedural states; Z79.01 Long term (current) use of anticoagulants; Z86.711 Personal history of pulmonary embolism; Z87.891 Personal history of nicotine dependence; J44.9 Chronic obstructive pulmonary disease, unspecified; I10 Essential (primary) hypertension; Z79.899 Other long term (current) drug therapy
CPT/HCPCS: 99283

== ENCOUNTER 2018-12-17 12:21 | Emergency (ER) | payer MEDICARE, OTHER ==
--- NOTE | 2018-12-17 12:51 | ER Document Report ---
ED Medical Screen (RME) - General Chief Complaint: Flank Pain Stated Complaint: RIGHT ABDOMINAL/FLANK PAIN Time Seen by Provider: 12/17/18 12:40 Primary Care Provider: MARY KAY CORONA MD [Primary Care Provider] - Follow up as needed Mode of Arrival: Ambulatory Information source: Patient Notes: Patient is an 78-year-old female who just had bladder surgery through her urethra 2 days ago, coming in complaining of right sided abdominal pain that she had at the time and also tried to tell her urologist about but states "they did not do anything about it." Patient initially comes in complaining of constipation, however took magnesium citrate and had "large amounts" of bowel movement yesterday. She denies any nausea vomiting fever. TRAVEL OUTSIDE OF THE [place] IN LAST 30 DAYS: No - Related Data Allergies/Adverse Reactions: lidocaine Allergy (Intermediate, Verified 08/17/18 10:28) ELEVATED BP Penicillins Allergy (Intermediate, Verified 08/17/18 10:28) RASH Past Medical History - General Information source: Patient - Past Medical History Cardiac Medical History: Reports: Hx Hypercholesterolemia, Hx Hypertension - on meds Denies: Hx Coronary Artery Disease, Hx Heart Attack Pulmonary Medical History: Reports: Hx COPD Denies: Hx Asthma, Hx Bronchitis, Hx Pneumonia Neurological Medical History: Denies: Hx Cerebrovascular Accident, Hx Seizures Endocrine Medical History: Reports: Hx Hypothyroidism Renal/ Medical History: Denies: Hx Peritoneal Dialysis GI Medical History: Reports: Hx Ulcer - 30 YRS AGO . Denies: Hx Hepatitis, Hx Hiatal Hernia Musculoskeltal Medical History: Reports Hx Arthritis - generalized Psychiatric Medical History: Reports: Hx Depression Infectious Medical History: Denies: Hx Hepatitis Past Surgical History: Reports: Hx Abdominal Surgery - hernias, Hx Cholecystectomy, Hx Hysterectomy. Denies: Hx Mastectomy, Hx Open Heart Surgery, Hx Pacemaker - Immunizations Hx Diphtheria, Pertussis, Tetanus Vaccination: Yes Review of Systems - Review of Systems Gastrointestinal: See HPI Physical Exam - Vital signs Vitals: Temp Pulse Resp BP Pulse Ox 97.4 F 68 22 H 175/50 H 97 12/17/18 12:32 12/17/18 12:32 12/17/18 12:32 12/17/18 12:32 12/17/18 12:32 - Notes Notes: PHYSICAL EXAMINATION: GENERAL: Well-appearing and in no acute distress. ABDOMEN: Soft, no tenderness. No guarding, no rebound Course - Vital Signs Vital signs: Temp Pulse Resp BP Pulse Ox 97.4 F 68 22 H 175/50 H 97 12/17/18 12:32 12/17/18 12:32 12/17/18 12:32 12/17/18 12:32 12/17/18 12:32 Doctor's Discharge - Discharge Referrals: MARY KAY CORONA MD [Primary Care Provider] - Follow up as needed
[2018-12-17 13:22] LABS: ABSOLUTE EOSINOPHILS # (AUTO) 0.1 10^3/uL (0.0-0.6); ABSOLUTE LYMPHOCYTES (AUTO) 0.9 10^3/uL (0.5-4.7); ABSOLUTE MONOCYTES (AUTO) 0.3 10^3/uL (0.1-1.4); ABSOLUTE NEUT (AUTO) 3.2 10^3/uL (1.7-8.2); BASOPHILS % (AUTO) 0.9 % (0-2); HEMOGLOBIN 14.1 g/dL (12.0-15.5); MEAN CORPUSCULAR HEMOGLOBIN 29.5 pg (27.0-33.4); MEAN CORPUSCULAR HGB CONC 33.7 g/dL (32.0-36.0); MEAN CORPUSCULAR VOLUME 88 fl (80-97); MONOCYTES % (AUTO) 6.3 % (3-13); PLATELET COUNT 216 10^3/uL (150-450); RED CELL DISTRIBUTION WIDTH 14.9 % (11.5-14.0); SEGMENTED NEUTROPHILS % (AUTO) 70.8 % (42-78); TOTAL CELLS COUNTED % (AUTO) 100 %; WHITE BLOOD COUNT 4.5 10^3/uL (4.0-10.5)
[2018-12-17 13:44] LABS: ALANINE AMINOTRANSFERASE 18 U/L (9-52); ALBUMIN 4.1 g/dL (3.5-5.0); ALKALINE PHOSPHATASE 101 U/L (38-126); ANION GAP 8 (5-19); ASPARTATE AMINO TRANSFERASE 21 U/L (14-36); BILIRUBIN,DIRECT 0.3 mg/dL (0.0-0.4); BILIRUBIN,TOTAL 0.6 mg/dL (0.2-1.3); BLOOD UREA NITROGEN 14 mg/dL (7-20); CALCIUM 9.6 mg/dL (8.4-10.2); CARBON DIOXIDE 24 mmol/L (22-30); CHLORIDE 108 mmol/L (98-107); GLUCOSE 106 mg/dL (75-110); LIPASE 102.3 U/L (23-300); POTASSIUM 4.8 mmol/L (3.6-5.0); SODIUM 140.4 mmol/L (137-145); TOTAL PROTEIN 6.8 g/dL (6.3-8.2)
[2018-12-17 14:11] LABS: APPEARANCE,URINE CLOUDY
[2018-12-17 14:12] LABS: BILIRUBIN,URINE NEGATIVE (NEGATIVE); COLOR,URINE RED; GLUCOSE, URINE NEGATIVE (NEGATIVE); KETONES,URINE 25 mg/dL (NEGATIVE); LEUKOCYTE ESTERASE,URINE TRACE (NEGATIVE); NITRITE,URINE NEGATIVE (NEGATIVE); PROTEIN,URINE >=500 mg/dL (NEGATIVE); URINE SPECIFIC GRAVITY 1.014; UROBILINOGEN,URINE NEGATIVE mg/dL (<2.0)
[2018-12-17 14:13] LABS: ADD MANUAL MICROSCOPIC YES; RBC,URINE TOO NUMEROUS TO CNT /HPF
--- NOTE | 2018-12-17 14:13 | RADIOLOGY REPORT (SQ) ---
EXAM DESCRIPTION: KUB/ABDOMEN (SINGLE VIEW) COMPLETED DATE/TIME: 12/17/2018 2:03 pm REASON FOR STUDY: recent surgery, right sided abd pain COMPARISON: 06/30/2013 NUMBER OF VIEWS: One view. TECHNIQUE: Supine radiographic image of the abdomen acquired. LIMITATIONS: None. FINDINGS: BOWEL GAS PATTERN: Normal bowel gas pattern. No dilated loops. CALCIFICATIONS: No suspicious calcifications. SOFT TISSUES: No gross mass or suggestion of organomegaly. HARDWARE: Multiple surgical clips overlie the right upper quadrant and pelvis. Evidence of prior her scot repair. BONES: No acute fracture. No worrisome bone lesions. OTHER: No other significant finding. IMPRESSION: NO RADIOGRAPHIC EVIDENCE FOR ACUTE ABDOMINAL DISEASE. TECHNICAL DOCUMENTATION: JOB ID: [id number] [employer]- All Rights Reserved Reading location - IP/workstation name: [email or web address]
[2018-12-17 14:14] LABS: BACTERIA,URINE 1+ /HPF
[2018-12-17 14:25] LABS: YEAST,URINE PRESENT
--- NOTE | 2018-12-17 16:14 | ER Document Report ---
ED General - General Chief Complaint: Flank Pain Stated Complaint: RIGHT ABDOMINAL/FLANK PAIN Time Seen by Provider: 12/17/18 12:40 Primary Care Provider: MARY KAY CORONA MD [Primary Care Provider] - Follow up as needed Mode of Arrival: Ambulatory TRAVEL OUTSIDE OF THE [place] IN LAST 30 DAYS: No - HPI Notes: Patient is an 78-year-old female who presents to the emergency department for evaluation. She is a difficult historian. She complains to me of pain in her right side that radiates around her back. She points to her right flank area. She had surgery 2 days ago on her urethra, where it was continuing to bleed. She is on Eliquis. She initially said that she had talked to her doctor about this pain and he "did not pay attention." She is speaking of her urologist. She then told me that the pain did not start until yesterday. She denies any fevers or chills, no nausea or vomiting. The pain does not radiate into her legs. She denies any numbness or tingling. In regards to bowel habits, she states she is having diarrhea. On further questioning however, she took magnesium citrate and a suppository yesterday. She told family members that she was constipated. - Related Data Allergies/Adverse Reactions: lidocaine Allergy (Intermediate, Verified 08/17/18 10:28) ELEVATED BP Penicillins Allergy (Intermediate, Verified 08/17/18 10:28) RASH Past Medical History - General Information source: Patient - Social History Smoking Status: Never Smoker Chew tobacco use (# tins/day): No Frequency of alcohol use: None Drug Abuse: None Family History: Reviewed & Not Pertinent Patient has suicidal ideation: No Patient has homicidal ideation: No - Past Medical History Cardiac Medical History: Reports: Hx Hypercholesterolemia, Hx Hypertension - on meds, Hx Pulmonary Embolism Denies: Hx Coronary Artery Disease, Hx Heart Attack Pulmonary Medical History: Reports: Hx COPD Denies: Hx Asthma, Hx Bronchitis, Hx Pneumonia Neurological Medical History: Denies: Hx Cerebrovascular Accident, Hx Seizures Endocrine Medical History: Reports: Hx Hypothyroidism Renal/ Medical History: Denies: Hx Peritoneal Dialysis Malignancy Medical History: Reports: Other - Bladder cancer GI Medical History: Reports: Hx Ulcer - 30 YRS AGO . Denies: Hx Hepatitis, Hx Hiatal Hernia Musculoskeletal Medical History: Reports Hx Arthritis - generalized Psychiatric Medical History: Reports: Hx Depression Infectious Medical History: Denies: Hx Hepatitis Past Surgical History: Reports: Hx Abdominal Surgery - hernias, Hx Cholecystectomy, Hx Hysterectomy. Denies: Hx Mastectomy, Hx Open Heart Surgery, Hx Pacemaker - Immunizations Hx Diphtheria, Pertussis, Tetanus Vaccination: Yes Review of Systems - Review of Systems Constitutional: No symptoms reported EENT: No symptoms reported Respiratory: No symptoms reported Gastrointestinal: No symptoms reported Genitourinary: See HPI Female Genitourinary: No symptoms reported Musculoskeletal: See HPI Skin: No symptoms reported Neurological/Psychological: No symptoms reported Physical Exam - Vital signs Vitals: Temp Pulse Resp BP Pulse Ox 97.4 F 68 22 H 175/50 H 97 12/17/18 12:32 12/17/18 12:32 12/17/18 12:32 12/17/18 12:32 12/17/18 12:32 - Notes Notes: Rather anxious appearing 78-year-old female, no acute distress. Vital signs reviewed, please refer to chart. Head is normocephalic, atraumatic. Pupils equal round, reactive to light. Neck is supple without meningismus. Heart is regular rate and rhythm. Lungs are clear to auscultation bilaterally. Abdomen is soft, nontender, normoactive bowel sounds throughout. Extremities without cyanosis, clubbing. Posterior calves are nontender. Peripheral pulses are equal. Examination of the spine yields no midline tenderness or step-off. There is paraspinal musculature tenderness noted from approximately T12 down through L2 or 3 bilaterally, right greater than left. Negative straight leg raise bilaterally. Patellar reflexes are 2+, Achilles reflexes 1+ bilaterally. Sensation is intact. Skin is warm and dry. Patient is awake, alert, neurological exam is nonfocal. Course - Re-evaluation Re-evalutation: 12/17/18 16:15 Patient presents emergency department for evaluation of pain in the right flank area and in her lower back. She had laboratory investigations and imaging as ordered through triage. She initially thought she had a "bowel blockage." Her KUB fails to reveal any significant intra-abdominal pathology. The patient has had multiple colonoscopies. I explained to her that her symptoms had nothing to do with a bowel blockage. Her laboratory investigations were remarkable for large blood in her urine. This is not surprising given a woman who just had urethral surgery and is currently on Eliquis. On further questioning the patient states that, beyond her regular medications, she was being prescribed ibuprofen by her urologist. I strongly advised this 78-year-old female on Eliquis to stop taking this medication. We discussed the increased risk of bleeding. I explained to the patient that I did not see any significant surgical emergencies at this time, suspect the perhaps her pain is musculoskeletal in nature. I will go ahead and start her on Robaxin. I advised her to stop taking the ibuprofen, start taking Tylenol. She is to follow-up with her primary care physician next week. She is to return to the emergency department with worsening or new concerning symptoms of any sort. - Vital Signs Vital signs: Temp Pulse Resp BP Pulse Ox 97.4 F 76 16 154/64 H 99 12/17/18 12:32 12/17/18 16:47 12/17/18 16:47 12/17/18 16:47 12/17/18 16:47 - Laboratory Result Diagrams: 12/17/18 12:57 12/17/18 12:57 Laboratory results interpreted by me: 12/17/18 12/17/18 12/17/18 12:56 12:57 12:57 RDW 14.9 H Chloride 108 H Urine Protein >=500 H Urine Ketones 25 H Urine Blood LARGE H Ur Leukocyte Esterase TRACE H - Diagnostic Test Radiology reviewed: Reports reviewed Radiology results interpreted by me: 12/17/18 16:15 KUB X-Ray 12/17/18 12:42 IMPRESSION: NO RADIOGRAPHIC EVIDENCE FOR ACUTE ABDOMINAL DISEASE. Discharge - Discharge Clinical Impression: Right flank pain Lower back pain Qualifiers: Back pain laterality: bilateral Sciatica presence: without sciatica Condition: Good Disposition: HOME, SELF-CARE Instructions: Flank Pain ([facility]), Low Back Pain ([facility]) Additional Instructions: Take the Robaxin as needed for lower back pain. Take [id number] acetaminophen (Tylenol) as needed for pain as well. Please do not continue taking the ibuprofen. You should not be taking NSAIDs while on Eliquis. Follow-up with your family doctor next week. Return to the emergency department with worsening or new concerning symptoms of any sort. Prescriptions: Methocarbamol [Robaxin-750] 750 mg PO TID PRN #21 tablet PRN Reason: Pain Scale Of 5 Referrals: MARY KAY CORONA MD [Primary Care Provider] - Follow up as needed
[2018-12-17 16:47] VITALS: BP 154/64
== END 2018-12-17 16:50 | disposition home or self-care (01) ==
LOC: ER 12:21
DX: R10.9 Unspecified abdominal pain (principal); M54.5 Low back pain; R19.7 Diarrhea, unspecified; I10 Essential (primary) hypertension; J44.9 Chronic obstructive pulmonary disease, unspecified; Z98.890 Other specified postprocedural states; Z79.02 Long term (current) use of antithrombotics/antiplatelets; Z86.711 Personal history of pulmonary embolism; Z85.51 Personal history of malignant neoplasm of bladder; Z90.49 Acquired absence of other specified parts of digestive tract; Z90.710 Acquired absence of both cervix and uterus; Z88.4 Allergy status to anesthetic agent; Z88.0 Allergy status to penicillin
CPT/HCPCS: 36415; 74018; 80053; 81001; 83690; 85025; 99284

== ENCOUNTER 2019-01-20 11:02 | Emergency (ER) | payer MEDICARE ==
[2019-01-20] MEDS ORDERED: LACTULOSE SYRUP 20 GM/30 ML UDCUP PO ONE (12:30)
[2019-01-20] MEDS ORDERED: NORMAL SALINE 1000 ML 1,000 ML IV ONE (12:30)
[2019-01-20] MEDS ORDERED: KETOROLAC TROMETHAMINE INJ/PF 30 MG/1 ML SDV IV ONE (12:30)
--- NOTE | 2019-01-20 12:31 | ER Document Report ---
ED GI/ - General Chief Complaint: Lower Abdominal Pain Stated Complaint: RECTAL PAIN Time Seen by Provider: 01/20/19 12:09 Primary Care Provider: MARY KAY CORONA MD [Primary Care Provider] - Follow up as needed Notes: 78-year-old female to emergency department chief complaint of abdominal pain, constipation. Followed by Dr. Canseco with urology. Has had multiple cystoscopies as well as ureteral issues recently. Continues to have pain in the right upper, right lower right side abdomen with constipation. Has been seen here prior. Continues to have symptoms. TRAVEL OUTSIDE OF THE [place] IN LAST 30 DAYS: No - Related Data Allergies/Adverse Reactions: lidocaine Allergy (Intermediate, Verified 01/20/19 11:03) ELEVATED BP Penicillins Allergy (Intermediate, Verified 01/20/19 11:03) RASH Past Medical History - General Information source: Patient - Social History Smoking Status: Never Smoker Frequency of alcohol use: Rare Drug Abuse: None Lives with: Spouse/Significant other Family History: Reviewed & Not Pertinent Patient has suicidal ideation: No Patient has homicidal ideation: No - Past Medical History Cardiac Medical History: Reports: Hx Hypercholesterolemia, Hx Hypertension - on meds, Hx Pulmonary Embolism Denies: Hx Coronary Artery Disease, Hx Heart Attack Pulmonary Medical History: Reports: Hx COPD Denies: Hx Asthma, Hx Bronchitis, Hx Pneumonia Neurological Medical History: Denies: Hx Cerebrovascular Accident, Hx Seizures Endocrine Medical History: Reports: Hx Hypothyroidism Renal/ Medical History: Denies: Hx Peritoneal Dialysis GI Medical History: Reports: Hx Ulcer - 30 YRS AGO . Denies: Hx Hepatitis, Hx Hiatal Hernia Musculoskeletal Medical History: Reports Hx Arthritis - generalized Psychiatric Medical History: Reports: Hx Depression Infectious Medical History: Denies: Hx Hepatitis Past Surgical History: Reports: Hx Abdominal Surgery - hernias, Hx Cholecystectomy, Hx Genitourinary Surgery - 4x bladder sx, Hx Hysterectomy. Denies: Hx Mastectomy, Hx Open Heart Surgery, Hx Pacemaker - Immunizations Hx Diphtheria, Pertussis, Tetanus Vaccination: Yes Review of Systems - Review of Systems Notes: Constitutional: denies: Chills, Diaphoresis, Fever, Malaise, Weakness EENT: denies: Eye discharge, Blurred vision, Tearing, Double vision, Nose congestion, Nose discharge, Throat swelling, Mouth pain Cardiovascular: denies: Palpitations, Heart racing, Orthopnea, Dyspnea, Chest pain Respiratory: denies: Cough, Hurts to breathe, Wheezing, Shortness of breath Gastrointestinal: denies: Diarrhea, Nausea, Vomiting, Black stools, bright red blood in stool, +Abdominal pain, positive for constipation Genitourinary: denies: Burning, Dysuria, Discharge, Frequency, Flank pain, Hematuria Musculoskeletal: denies: Joint pain, Joint swelling, Muscle pain, Muscle stiffness, back pain Hematologic/Lymphatic: denies: Anemia, Easy bleeding, Easy bruising, Blood clots Neurological/Psychological: denies: Confusion, Dementia, Depression, Loss of consciousness Skin: No lesions, no masses, no skin breakdown, no abscesses Physical Exam - Vital signs Vitals: Temp Pulse Resp BP Pulse Ox 97.5 F 66 20 148/68 H 96 01/20/19 11:08 01/20/19 11:08 01/20/19 11:08 01/20/19 11:08 01/20/19 11:08 Interpretation: Normal - General General appearance: Appears well, Alert - HEENT Head: Normocephalic, Atraumatic Eyes: Normal Pupils: PERRL - Respiratory Respiratory status: No respiratory distress Chest status: Nontender Breath sounds: Normal Chest palpation: Normal - Cardiovascular Rhythm: Regular Heart sounds: Normal auscultation Murmur: No - Abdominal Inspection: Normal Distension: No distension Bowel sounds: Normal Tenderness: Nontender Organomegaly: No organomegaly - Back Back: Normal, Nontender - Extremities General upper extremity: Normal inspection, Nontender, Normal color, Normal ROM, Normal temperature General lower extremity: Normal inspection, Nontender, Normal color, Normal ROM, Normal temperature, Normal weight bearing. No: Kinsey's sign - Neurological Neuro grossly intact: Yes Cognition: Normal Orientation: AAOx4 [place] Coma Scale Eye Opening: Spontaneous [place] Coma Scale Verbal: Oriented [place] Coma Scale Motor: Obeys Commands [place] Coma Scale Total: 15 Speech: Normal Motor strength normal: LUE, RUE, LLE, RLE Sensory: Normal - Psychological Associated symptoms: Normal affect, Normal mood - Skin Skin Temperature: Warm Skin Moisture: Dry Skin Color: Normal Course - Re-evaluation Re-evalutation: 01/20/19 14:33 Laboratory 01/20/19 01/20/19 01/20/19 13:15 13:32 13:32 WBC 3.7 L RBC 4.72 Hgb 13.8 Hct 41.3 MCV 88 MCH 29.3 MCHC 33.4 RDW 13.5 Plt Count 329 Seg Neutrophils % 44.2 Lymphocytes % 41.8 Monocytes % 9.3 Eosinophils % 3.5 Basophils % 1.2 Absolute Neutrophils 1.6 L Absolute Lymphocytes 1.5 Absolute Monocytes 0.3 Absolute Eosinophils 0.1 Absolute Basophils 0.0 PT 17.9 H INR 1.46 APTT 41.1 H Sodium Potassium Chloride Carbon Dioxide Anion Gap BUN Creatinine Est GFR ( Amer) Est GFR (Non-Af Amer) Glucose Calcium Total Bilirubin Direct Bilirubin Neonat Total Bilirubin Neonat Direct Bilirubin Neonat Indirect Bili AST ALT Alkaline Phosphatase Total Protein Albumin Urine Color YELLOW Urine Appearance CLEAR Urine pH 7.0 Ur Specific [place] 1.005 Urine Protein 30 H Urine Glucose (UA) NEGATIVE Urine Ketones NEGATIVE Urine Blood SMALL H Urine Nitrite NEGATIVE Urine Bilirubin NEGATIVE Urine Urobilinogen NEGATIVE Ur Leukocyte Esterase LARGE H Urine WBC (Auto) 38 Urine RBC (Auto) 1 U Hyaline Cast (Auto) 1 Urine Bacteria (Auto) TRACE Squamous Epi Cells Auto 1 Urine Mucus (Auto) RARE Urine Ascorbic Acid NEGATIVE 01/20/19 13:32 WBC RBC Hgb Hct MCV MCH MCHC RDW Plt Count Seg Neutrophils % Lymphocytes % Monocytes % Eosinophils % Basophils % Absolute Neutrophils Absolute Lymphocytes Absolute Monocytes Absolute Eosinophils Absolute Basophils PT INR APTT Sodium 140.6 Potassium 3.7 Chloride 105 Carbon Dioxide 27 Anion Gap 9 BUN 4 L Creatinine 0.64 Est GFR ( Amer) > 60 Est GFR (Non-Af Amer) > 60 Glucose 99 Calcium 9.4 Total Bilirubin 0.5 Direct Bilirubin 0.2 Neonat Total Bilirubin Not Reportable Neonat Direct Bilirubin Not Reportable Neonat Indirect Bili Not Reportable AST 21 ALT 20 Alkaline Phosphatase 89 Total Protein 6.4 Albumin 3.8 Urine Color Urine Appearance Urine pH Ur Specific [place] Urine Protein Urine Glucose (UA) Urine Ketones Urine Blood Urine Nitrite Urine Bilirubin Urine Urobilinogen Ur Leukocyte Esterase Urine WBC (Auto) Urine RBC (Auto) U Hyaline Cast (Auto) Urine Bacteria (Auto) Squamous Epi Cells Auto Urine Mucus (Auto) Urine Ascorbic Acid Acute Abdomen Series 01/20/19 12:30 IMPRESSION: NO RADIOGRAPHIC EVIDENCE FOR ACUTE ABDOMINAL DISEASE. 01/20/19 14:34 She is labs are unremarkable. She states that she feels much better. Incidental UTI. Will treat. We will also prescribe some lactulose for constipation. I have advised her that these work-ups are difficult. She may require repeat evaluation more than likely in repetitive work-up until definitive diagnosis can be obtained. Patient seems comfortable with this plan. Discharge at this time in stable condition. - Vital Signs Vital signs: Temp Pulse Resp BP Pulse Ox 97.5 F 66 20 148/68 H 96 01/20/19 11:08 01/20/19 11:08 01/20/19 11:08 01/20/19 11:08 01/20/19 11:08 - Laboratory Result Diagrams: 01/20/19 13:32 01/20/19 13:32 Laboratory results interpreted by me: 01/20/19 01/20/19 01/20/19 13:15 13:32 13:32 WBC 3.7 L Absolute Neutrophils 1.6 L PT 17.9 H APTT 41.1 H BUN Urine Protein 30 H Urine Blood SMALL H Ur Leukocyte Esterase LARGE H 01/20/19 13:32 WBC Absolute Neutrophils PT APTT BUN 4 L Urine Protein Urine Blood Ur Leukocyte Esterase Discharge - Discharge Clinical Impression: Urinary tract infection Qualifiers: Urinary tract infection type: site unspecified Hematuria presence: without hematuria Qualified Code(s): N39.0 - Urinary tract infection, site not specified Constipation Qualifiers: Constipation type: unspecified constipation type Qualified Code(s): K59.00 - Constipation, unspecified Condition: Good Disposition: HOME, SELF-CARE Instructions: Urinary Tract Infection ([facility]), Nitrofurantoin ([facility]), Constipation ([facility]) Additional Instructions: Continue to drink plenty of liquids. He can continue to do things like prune juice and MiraLAX. I am prescribing you some lactulose which should help with your constipation but can cause some bloating. You have a urinary tract infection which needs to be treated. I am starting you on some medication called Macrobid. In the event that your symptoms are getting worse it would be very important that you return. Prescriptions: Lactulose 20 gm PO DAILY 5 Days #200 ml Nitrofurantoin/Nitrofuran Mac [Macrobid 100 mg Capsule] 1 tab PO BID 10 Days #20 capsule Referrals: MARY KAY CORONA MD [Primary Care Provider] - Follow up as needed
--- NOTE | 2019-01-20 13:26 | RADIOLOGY REPORT (SQ) ---
EXAM DESCRIPTION: ACUTE ABDOMEN SERIES COMPLETED DATE/TIME: 01/20/2019 12:57 pm REASON FOR STUDY: abd pain COMPARISON: KUB 12/17/2018, 06/30/2013 CT abdomen pelvis 08/17/2018 Two-view chest 07/03/2018 NUMBER OF VIEWS: Three views. TECHNIQUE: Frontal chest, supine abdomen and upright abdomen radiographic images acquired. LIMITATIONS: None. FINDINGS: CHEST: Chronic increased interstitial markings at both lung bases. No acute infiltrates. No pleural effusion or pneumothorax. Upper lobes are hyperlucent from obstructive disease. FREE AIR: None. No abnormal gas collections. BOWEL GAS PATTERN: Nonobstructive pattern. No dilated loops or air fluid levels. CALCIFICATIONS: No suspicious calcifications. HARDWARE: Clips right upper quadrant post cholecystectomy. Old laparoscopic ventral hernia tacks and midline low anterior incision tacks. SOFT TISSUES: No gross mass or suggestion of organomegaly. BONES: No acute fracture. No worrisome bone lesions. OTHER: No other significant finding. IMPRESSION: NO RADIOGRAPHIC EVIDENCE FOR ACUTE ABDOMINAL DISEASE. TECHNICAL DOCUMENTATION: JOB ID: [id number] [employer]- All Rights Reserved Reading location - IP/workstation name: [email or web address]
[2019-01-20 13:41] LABS: ABSOLUTE EOSINOPHILS # (AUTO) 0.1 10^3/uL (0.0-0.6); ABSOLUTE LYMPHOCYTES (AUTO) 1.5 10^3/uL (0.5-4.7); ABSOLUTE MONOCYTES (AUTO) 0.3 10^3/uL (0.1-1.4); ABSOLUTE NEUT (AUTO) 1.6 10^3/uL (1.7-8.2); BASOPHILS % (AUTO) 1.2 % (0-2); EOSINOPHILS % (AUTO) 3.5 % (0-6); HEMATOCRIT 41.3 % (36.0-47.0); HEMOGLOBIN 13.8 g/dL (12.0-15.5); LYMPHOCYTES % (AUTO) 41.8 % (13-45); MEAN CORPUSCULAR HEMOGLOBIN 29.3 pg (27.0-33.4); MEAN CORPUSCULAR HGB CONC 33.4 g/dL (32.0-36.0); MEAN CORPUSCULAR VOLUME 88 fl (80-97); MONOCYTES % (AUTO) 9.3 % (3-13); PLATELET COUNT 329 10^3/uL (150-450); RED BLOOD COUNT 4.72 10^6/uL (3.72-5.28); RED CELL DISTRIBUTION WIDTH 13.5 % (11.5-14.0); SEGMENTED NEUTROPHILS % (AUTO) 44.2 % (42-78); TOTAL CELLS COUNTED % (AUTO) 100 %; WHITE BLOOD COUNT 3.7 10^3/uL (4.0-10.5)
[2019-01-20 13:48] LABS: APPEARANCE,URINE CLEAR; BILIRUBIN,URINE NEGATIVE (NEGATIVE); COLOR,URINE YELLOW; GLUCOSE, URINE NEGATIVE (NEGATIVE); KETONES,URINE NEGATIVE (NEGATIVE); LEUKOCYTE ESTERASE,URINE LARGE (NEGATIVE); NITRITE,URINE NEGATIVE (NEGATIVE); PROTEIN,URINE 30 mg/dL (NEGATIVE); URINE SPECIFIC GRAVITY 1.005; UROBILINOGEN,URINE NEGATIVE mg/dL (<2.0)
[2019-01-20 13:50] LABS: INTERNATIONAL RATION (INR) 1.46; PROTHROMBIN TIME 17.9 SEC (11.4-15.4)
[2019-01-20 13:51] LABS: PARTIAL THROMBOPLASTIN TIME 41.1 SEC (23.5-35.8)
[2019-01-20 14:00] LABS: ALANINE AMINOTRANSFERASE 20 U/L (9-52); ALBUMIN 3.8 g/dL (3.5-5.0); ALKALINE PHOSPHATASE 89 U/L (38-126); ANION GAP 9 (5-19); ASPARTATE AMINO TRANSFERASE 21 U/L (14-36); BILIRUBIN,DIRECT 0.2 mg/dL (0.0-0.4); BILIRUBIN,TOTAL 0.5 mg/dL (0.2-1.3); BLOOD UREA NITROGEN 4 mg/dL (7-20); CALCIUM 9.4 mg/dL (8.4-10.2); CARBON DIOXIDE 27 mmol/L (22-30); CHLORIDE 105 mmol/L (98-107); GLUCOSE 99 mg/dL (75-110); POTASSIUM 3.7 mmol/L (3.6-5.0); SODIUM 140.6 mmol/L (137-145); TOTAL PROTEIN 6.4 g/dL (6.3-8.2)
[2019-01-20] MEDS ORDERED: NITROFURANTOIN MONOHYD/M-CRYST 100 MG CAPSULE PO ONE (14:39)
[2019-01-20 15:38] VITALS: BP 169/52
== END 2019-01-20 15:38 | disposition home or self-care (01) ==
LOC: ER 11:02
DX: N39.0 Urinary tract infection, site not specified (principal); K59.00 Constipation, unspecified; R10.11 Right upper quadrant pain; R10.31 Right lower quadrant pain; K62.89 Other specified diseases of anus and rectum; I10 Essential (primary) hypertension; J44.9 Chronic obstructive pulmonary disease, unspecified; Z79.899 Other long term (current) drug therapy
CPT/HCPCS: 99283; 96361; 96374; 36415; 87086; 85025; 85610; 85730; 80053; 81001; 74022; A9270 ×2; J1885; J7030; J8499

== ENCOUNTER 2019-01-21 02:36 | Emergency (ER) | payer MEDICARE, OTHER ==
--- NOTE | 2019-01-21 04:12 | ER Document Report ---
ED Medical Screen (RME) - General Chief Complaint: Back Pain Stated Complaint: STOMACHE/BACK PAIN Time Seen by Provider: 01/21/19 04:07 Primary Care Provider: MARY KAY CORONA MD [Primary Care Provider] - Follow up as needed Notes: Patient is an 78-year-old female who presents to the emergency department with a chief complaint of abdominal pain. She was seen yesterday here in the emergency department and was diagnosed with constipation and a urinary tract infection. She states that she took the lactulose that was given to her in the emergency department and she had multiple bowel movements. She states that she did have some relief, but woke up around 2300 and had more abdominal pain. She states that her pain is throughout her abdomen. Patient has had multiple cystoscopies in the past. Exam: Abdomen soft. Limited exam due to patient being in a wheelchair. I have greeted and performed a rapid initial assessment of this patient. A comprehensive ED assessment and evaluation of the patient, analysis of test results and completion of medical decision making process will be conducted by an additional ED providers. TRAVEL OUTSIDE OF THE [place] IN LAST 30 DAYS: No - Related Data Allergies/Adverse Reactions: lidocaine Allergy (Intermediate, Verified 01/20/19 11:03) ELEVATED BP Penicillins Allergy (Intermediate, Verified 01/20/19 11:03) RASH Past Medical History - Past Medical History Cardiac Medical History: Reports: Hx Hypercholesterolemia, Hx Hypertension - on meds, Hx Pulmonary Embolism Denies: Hx Coronary Artery Disease, Hx Heart Attack Pulmonary Medical History: Reports: Hx COPD Denies: Hx Asthma, Hx Bronchitis, Hx Pneumonia Neurological Medical History: Denies: Hx Cerebrovascular Accident, Hx Seizures Endocrine Medical History: Reports: Hx Hypothyroidism Renal/ Medical History: Denies: Hx Peritoneal Dialysis GI Medical History: Reports: Hx Ulcer - 30 YRS AGO . Denies: Hx Hepatitis, Hx Hiatal Hernia Musculoskeltal Medical History: Reports Hx Arthritis - generalized Psychiatric Medical History: Reports: Hx Depression Infectious Medical History: Denies: Hx Hepatitis Past Surgical History: Reports: Hx Abdominal Surgery - hernias, Hx Cholecystectomy, Hx Genitourinary Surgery - 4x bladder sx, Hx Hysterectomy. Denies: Hx Mastectomy, Hx Open Heart Surgery, Hx Pacemaker - Immunizations Hx Diphtheria, Pertussis, Tetanus Vaccination: Yes Physical Exam - Vital signs Vitals: Temp Pulse Resp BP Pulse Ox 98.6 F 85 22 H 147/49 H 96 01/21/19 02:41 01/21/19 02:41 01/21/19 02:41 01/21/19 02:41 01/21/19 02:41 Course - Vital Signs Vital signs: Temp Pulse Resp BP Pulse Ox 98.6 F 85 22 H 147/49 H 96 01/21/19 02:41 01/21/19 02:41 01/21/19 02:41 01/21/19 02:41 01/21/19 02:41 Doctor's Discharge - Discharge Referrals: MARY KAY CORONA MD [Primary Care Provider] - Follow up as needed
[2019-01-21 07:05] LABS: ABSOLUTE LYMPHOCYTES (AUTO) 0.6 10^3/uL (0.5-4.7); ABSOLUTE MONOCYTES (AUTO) 0.3 10^3/uL (0.1-1.4); ABSOLUTE NEUT (AUTO) 6.7 10^3/uL (1.7-8.2); BASOPHILS % (AUTO) 0.6 % (0-2); EOSINOPHILS % (AUTO) 0.6 % (0-6); HEMATOCRIT 40.8 % (36.0-47.0); HEMOGLOBIN 13.8 g/dL (12.0-15.5); LYMPHOCYTES % (AUTO) 7.5 % (13-45); MEAN CORPUSCULAR HEMOGLOBIN 29.6 pg (27.0-33.4); MEAN CORPUSCULAR HGB CONC 33.9 g/dL (32.0-36.0); MEAN CORPUSCULAR VOLUME 87 fl (80-97); PLATELET COUNT 342 10^3/uL (150-450); RED BLOOD COUNT 4.67 10^6/uL (3.72-5.28); RED CELL DISTRIBUTION WIDTH 13.5 % (11.5-14.0); SEGMENTED NEUTROPHILS % (AUTO) 87.3 % (42-78); TOTAL CELLS COUNTED % (AUTO) 100 %
[2019-01-21 07:11] LABS: ALANINE AMINOTRANSFERASE 22 U/L (9-52); ALBUMIN 3.8 g/dL (3.5-5.0); ALKALINE PHOSPHATASE 91 U/L (38-126); ANION GAP 9 (5-19); ASPARTATE AMINO TRANSFERASE 21 U/L (14-36); BILIRUBIN,DIRECT 0.3 mg/dL (0.0-0.4); BILIRUBIN,TOTAL 0.6 mg/dL (0.2-1.3); BLOOD UREA NITROGEN 6 mg/dL (7-20); CALCIUM 9.1 mg/dL (8.4-10.2); CARBON DIOXIDE 26 mmol/L (22-30); CHLORIDE 103 mmol/L (98-107); GLUCOSE 122 mg/dL (75-110); POTASSIUM 3.7 mmol/L (3.6-5.0); SODIUM 138.4 mmol/L (137-145); TOTAL PROTEIN 6.4 g/dL (6.3-8.2)
[2019-01-21 07:23] LABS: WHITE BLOOD COUNT 7.7 10^3/uL (4.0-10.5)
--- NOTE | 2019-01-21 08:16 | RADIOLOGY REPORT (SQ) ---
EXAM DESCRIPTION: CT ABD/PELVIS COMBO COMPLETED DATE/TIME: 01/21/2019 7:39 am REASON FOR STUDY: abdominal pain. CREAT 0.64 COMPARISON: Three-way abdomen series [id number] KUB 12/17/2018 CT abdomen pelvis 08/17/2018, 08/08/2013 TECHNIQUE: CT scan of the abdomen and pelvis performed with and without intravenous contrast, and wi thout oral contrast. Contrasted imaging performed helical scanning technique and dynamic intravenous contrast injection. Images reviewed with lung, soft tissue, and bone windows. Reconstructed coronal a nd sagittal MPR images reviewed. Delayed images for evaluation of the urinary system also acquired. A ll images stored on PACS. All CT scanners at this facility use dose modulation, iterative reconstruction, and/or weight based d osing when appropriate to reduce radiation dose to as low as reasonably achievable (ALARA). [facility]: Dose Right [facility]: CareDose [facility]: Dose Right [facility]: Teradose 4D [facility]: Dealentra CONTRAST TYPE AND DOSE: contrast/concentration: Isovue mg/ml; Total Contrast Delivered: 82.0 ml; To brooke Saline Delivered: 38.0 ml RENAL FUNCTION: Creatinine 0.6 RADIATION DOSE: CT Rad equipment meets quality standard of care and radiation dose reduction techniq ues were employed. CTDIvol: 12.0 - 15.9 mGy. DLP: 1930 mGy-cm. . LIMITATIONS: None. FINDINGS: NON-CONTRASTED IMAGING: No radiopaque urinary stones or gallstones. POST-CONTRASTED IMAGING: LOWER CHEST: Pulmonary fibrosis at both lung bases. No focal infiltrates. LIVER: Normal size. No masses. No dilated ducts. Benign cysts in the liver SPLEEN: Normal size. No focal lesions. PANCREAS: No masses. No significant calcifications. No adjacent inflammation or peripancreatic fluid collections. Pancreatic duct not dilated. GALLBLADDER: Surgically absent ADRENAL GLANDS: No significant masses or asymmetry. RIGHT KIDNEY AND URETER: No solid masses. No significant calcifications. There is new marked righ t hydronephrosis and hydroureter down to the level of the right ureterovesical junction. Patient has a right-sided bladder trigone tumor. Hydronephrosis is new compared to CT 08/17/2018. LEFT KIDNEY AND URETER: No solid masses. No significant calcifications. No hydronephrosis or hydr oureter. AORTA AND VESSELS: No aneurysm. No dissection. Renal arteries, SMA, celiac without stenosis. RETROPERITONEUM: No retroperitoneal adenopathy, hemorrhage or masses. BOWEL AND PERITONEAL CAVITY: No masses or inflammatory changes. No free fluid or peritoneal masses. APPENDIX: Normal. PELVIS: Right-sided bladder mass. This is best shown on axial images 72 through 77. Post hysterecto my. Tiny postmenopausal ovaries. No free pelvic fluid. No pelvic adenopathy. ABDOMINAL WALL: Intact laparoscopic umbilical hernia repair BONES: No significant or acute findings. OTHER: No other significant finding. IMPRESSION: NEW MARKED RIGHT HYDRONEPHROSIS AND HYDROURETER DOWN TO THE LEVEL OF THE RIGHT URETEROVE SICAL JUNCTION. PATIENT HAS A RIGHT-SIDED BLADDER TRIGONE TUMOR. TECHNICAL DOCUMENTATION: JOB ID: [id number] Quality ID # [id number]: Final reports with documentation of one or more dose reduction techniques (e.g., Au tomated exposure control, adjustment of the mA and/or kV according to patient size, use of iterative reconstruction technique) 2010 [employer]- All Rights Reserved Reading location - IP/workstation name: [email or web address]
[2019-01-21 09:14] LABS: APPEARANCE,URINE CLEAR; BILIRUBIN,URINE NEGATIVE (NEGATIVE); COLOR,URINE YELLOW; GLUCOSE, URINE NEGATIVE (NEGATIVE); KETONES,URINE NEGATIVE (NEGATIVE); LEUKOCYTE ESTERASE,URINE MODERATE (NEGATIVE); NITRITE,URINE NEGATIVE (NEGATIVE); PROTEIN,URINE NEGATIVE (NEGATIVE); UROBILINOGEN,URINE NEGATIVE mg/dL (<2.0)
[2019-01-21] MEDS ORDERED: SULFAMETHOXAZOLE/TRIMETHOPRIM 800-160 MG TABLET PO ONE (09:53)
[2019-01-21 10:43] VITALS: BP 121/51
--- NOTE | 2019-01-21 15:30 | ER Document Report ---
Entered by MARY KAY EDOUARD SCRIBE 01/21/19 0612 Acting as scribe for:MATTEO DEL ROSARIO DO ED General - General Chief Complaint: Back Pain Stated Complaint: STOMACHE/BACK PAIN Time Seen by Provider: 01/21/19 04:07 Primary Care Provider: MARY KAY CORONA MD [Primary Care Provider] - Follow up as needed ASHLEY GIBSON MD [NO LOCAL MD] - Follow up as needed ANDREIA CALLEJAS MD [NO LOCAL MD] - Follow up as needed Notes: 78-year-old female who is very difficult historian presents the emergency depart ment complaining of several different problems. Patient complains of right sided pain that she states is not in her abdomen however when asked to indicate where it is she points to her right lateral abdomen just above her iliac crest and just below her right side of her rib cage. This is a pain that has been going on intermittently since time frame after she had a "bladder scraping" by Dr. Gibson for her bladder cancer. Patient states that this pain worsens when she eats but also worsens when she is walking and sometimes results in a sensation that her muscles are locking up and it radiates down her right leg to mid thigh. Denies any numbness, tingling, weakness. Patient was also seen here yesterday for constipation, treated with lactulose and prescribed lactulose to take at home. Patient did not get this prescription filled and is concerned because she had 11 bowel movements yesterday and has not had one since 9 PM last night. She is afraid she is constipated again. Patient additionally states that she was diagnosed with urinary tract infection yesterday when in the emergency department complaining of hematuria and is now having bilateral low back pain that radiates down to her left hip. Denies any bowel or bladder dysfunction. Denies any saddle anesthesia. Denies any trauma. Patient's biggest concern is the abdominal pain that has been going on for at least 2 months but her only new complaints are that she has not had a bowel movement since 9 PM last night and that she has low back pain. TRAVEL OUTSIDE OF THE [place] IN LAST 30 DAYS: No - Related Data Allergies/Adverse Reactions: lidocaine Allergy (Intermediate, Verified 01/20/19 11:03) ELEVATED BP Penicillins Allergy (Intermediate, Verified 01/20/19 11:03) RASH Past Medical History - General Information source: Patient, Relative - Social History Smoking Status: Never Smoker Chew tobacco use (# tins/day): No Frequency of alcohol use: None Drug Abuse: None Lives with: Spouse/Significant other Family History: Reviewed & Not Pertinent - Past Medical History Cardiac Medical History: Reports: Hx Hypercholesterolemia, Hx Hypertension - on meds, Hx Pulmonary Embolism Denies: Hx Coronary Artery Disease, Hx Heart Attack Pulmonary Medical History: Reports: Hx COPD Denies: Hx Asthma, Hx Bronchitis, Hx Pneumonia Neurological Medical History: Denies: Hx Cerebrovascular Accident, Hx Seizures Endocrine Medical History: Reports: Hx Hypothyroidism Renal/ Medical History: Denies: Hx Peritoneal Dialysis GI Medical History: Reports: Hx Ulcer - 30 YRS AGO . Denies: Hx Hepatitis, Hx Hiatal Hernia Musculoskeletal Medical History: Reports Hx Arthritis - generalized Psychiatric Medical History: Reports: Hx Depression Infectious Medical History: Denies: Hx Hepatitis Past Surgical History: Reports: Hx Abdominal Surgery - hernias, Hx Ch olecystectomy, Hx Genitourinary Surgery - 4x bladder sx, Hx Hysterectomy. Denies: Hx Mastectomy, Hx Open Heart Surgery, Hx Pacemaker - Immunizations Hx Diphtheria, Pertussis, Tetanus Vaccination: Yes Review of Systems - Review of Systems Constitutional: No symptoms reported EENT: No symptoms reported Cardiovascular: No symptoms reported Gastrointestinal: See HPI Genitourinary: See HPI Musculoskeletal: See HPI -: Yes All other systems reviewed and negative Physical Exam - Vital signs Vitals: Temp Pulse Resp BP Pulse Ox 98.6 F 85 22 H 147/49 H 96 01/21/19 02:41 01/21/19 02:41 01/21/19 02:41 01/21/19 02:41 01/21/19 02:41 - Notes Notes: PHYSICAL EXAM GENERAL: Alert, interacts well. No acute distress. HEAD: Normocephalic, atraumatic. EYES: Pupils equal, round, and reactive to light. Extraocular movements intact. ENT: Oral mucosa moist, tongue midline. NECK: Full range of motion. Supple. Trachea midline. LUNGS: Clear to auscultation bilaterally, no wheezes, rales, or rhonchi. No respiratory distress. HEART: Regular rate and rhythm. No murmurs, gallops, or rubs. ABDOMEN: Soft, non-tender. Non-distended. Bowel sounds present in all 4 quadrants. No guarding, rigidity, or rebound. No CVA tenderness to percussion. EXTREMITIES: Moves all 4 extremities spontaneously. No edema, radial and dorsalis pedis pulses 2/4 bilaterally. No cyanosis. Negative straight leg raising test bilaterally. No saddle anesthesia.5/5 great toe raising strength B/L NEUROLOGICAL: Alert and oriented x3. Normal speech. Biceps and patellar DTRs 2+ bilaterally. PSYCH: Normal affect, normal mood. SKIN: Warm, dry, normal turgor. No rashes or lesions noted. Course - Re-evaluation Re-evalutation: 01/21/19 09:54 CBC unremarkable with white count of 7.7, this has increased since yesterday, CMP unremarkable, no renal failure, glucose is elevated at 122 but this is nonfasting, urinalysis from yesterday reviewed and shows small blood and large leukocyte esterase, patient did not provide a urine specimen today. Urine culture from yesterday is pending. Given the patient's continuing right-sided abdominal pain and her age and risk factors a CT scan was performed which revealed new [place] right hydronephrosis and hydroureter down to the level of the right ureterovesicular junction. Patient has right-sided bladder trigone tumor. This is concerning because the patient was previously under the impression that she had been cured of her cancer. This is a new finding compared to prior CT scan on 08/17/2018. I did call and discussed this finding with Dr. Callejas the urologist who is on- call for Dr. Gibson. He states that the patient can be treated as an outpatient for her UTI identified yesterday, there is no find signs of sepsis, she has no fever no leukocytosis. There is no indication for emergent stenting today. Patient is to call the office and arrange a follow-up appointment as an outpatient. Patient will be switched from Macrobid because of the ureteral obstruction to Bactrim and discharged to home. As the patient's pain is described as an intermittent spasming pain that worsens with certain movements patient will be started on a muscle relaxer as she may be having some viscerosomatic muscle spasms related to the obstruction and she will also be given a limited number of Vicodin. - Vital Signs Vital signs: Temp Pulse Resp BP Pulse Ox 97.6 F 73 15 121/51 L 96 01/21/19 10:34 01/21/19 10:34 01/21/19 10:34 01/21/19 10:34 01/21/19 10:34 - Laboratory Result Diagrams: 01/21/19 06:36 01/21/19 06:36 Laboratory results interpreted by me: 01/21/19 01/21/19 01/21/19 06:36 06:36 08:53 Seg Neutrophils % 87.3 H Lymphocytes % 7.5 L BUN 6 L Glucose 122 H Urine Blood SMALL H Ur Leukocyte Esterase MODERATE H Discharge - Discharge Clinical Impression: Obstruction of right ureter, Bladder tumor, Hydroureter, right, Hydronephrosis, right, Spasm of right side abdominal muscles Urinary tract infection Qualifiers: Urinary tract infection type: acute cystitis Hematuria presence: without hematuria Qualified Code(s): N30.00 - Acute cystitis without hematuria Condition: Stable Disposition: HOME, SELF-CARE Additional Instructions: You have a right sided tumor of the bladder trigone. This is obstructing your u reter and causing your kidney and ureter not to drain on the right-hand side. You need to call Dr. Gibson's office to arrange a follow-up appointment for sometime next week. You also have a urinary tract infection. I have changed you from the Macrobid that we prescribed yesterday to a stronger antibiotic in the form of Bactrim. I suspect some of your pain that you are having is coming from a muscle spasm. I have prescribed Robaxin. If this does not control your pain you may also try the [place] I have prescribed. Prescriptions: Hydrocodone/Acetaminophen [[place] 5-325 mg Tablet] 1 tab PO Q6HP PRN #10 tablet PRN Reason: Cyclobenzaprine HCl [Flexeril 5 mg Tablet] 5 mg PO TID #15 tablet Sulfamethoxazole/Trimethoprim [Bactrim Ds Tablet] 1 each PO BID #14 tablet Referrals: MARY KAY CORONA MD [Primary Care Provider] - Follow up as needed ASHLEY GIBSON MD [NO LOCAL MD] - Follow up as needed ANDREIA CALLEJAS MD [NO LOCAL MD] - Follow up as needed I personally performed the services described in the documentation, reviewed and edited the documentation which was dictated to the scribe in my presence, and it accurately records my words and actions.
== END 2019-01-21 10:43 | disposition home or self-care (01) ==
LOC: ER 02:36
DX: N32.9 Bladder disorder, unspecified (principal); N13.1 Hydronephrosis with ureteral stricture, not elsewhere classified; N30.00 Acute cystitis without hematuria; M62.838 Other muscle spasm; M54.5 Low back pain; I10 Essential (primary) hypertension; J44.9 Chronic obstructive pulmonary disease, unspecified; Z88.0 Allergy status to penicillin; Z88.4 Allergy status to anesthetic agent; Z98.890 Other specified postprocedural states
CPT/HCPCS: 99284; 36415; 87086; 85025; 80053; 81001; 83605; 74178; A9270